=== PATIENT | female | born 1950 | race Caucasian/White ===

== ENCOUNTER 2019-09-16 12:16 | Day surgery (SDC) | payer MEDICARE, OTHER, SELFPAY ==
[2019-09-15 07:26] VITALS: BMI 26.1
[2019-09-16] VITALS (15 sets, daily range): BP systolic 105–167; BP diastolic 58–88; PULSE 58–71; RESP 10–18; TEMP 36.3–36.7; O2SAT 93–98; BMI 26.1
[2019-09-16] MEDS: LACTATED RINGERS 1,000 ML 100 ML IV ×3 (13:26→17:39)
[2019-09-16] MEDS: FAMOTIDINE 20 MG/50 ML PIGGYBACK 200 MG IV (14:12)
--- NOTE | 2019-09-16 14:22 | PM.PREOP ---
Pre-operative Note Interval Note History & Physical reviewed/Exam performed by Physician: Yes Changes to H&P: No H&P completed within 30 days and has changed as indicated here:: See outpatient note from 09/08
[2019-09-16] MEDS: CLINDAMYCIN 900 MG/50 ML PIGGYBACK 50 MG IV (14:35)
--- NOTE | 2019-09-16 14:56 | SUR.OPER ---
Lithotomy on padded OR bed, head on pillow, arms secured on padded arm boards at <90 degrees abduction. Legs secured in padded yellow fins stirrups.
[2019-09-16] MEDS: BUPIVACAINE 0.5% W/ EPI (PF) 30 ML VIAL 10 ML INJ (15:14)
[2019-09-16] MEDS: SODIUM CHLORIDE 0.9% FLUSH 30 ML IV (15:15)
--- NOTE | 2019-09-16 16:08 | PM.OP.1 ---
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 Post-op diagnosis: same Procedure & Clinicians Procedure: Anterior repair with biologic graft, posterior repair with bilateral sacrospinous ligament fixation, and perineoplasty Same procedure as scheduled: Yes Indications: Recurring cystocele and vaginal vault prolapse with a history of hysterectomy and anterior repair Surgeon: Aliya Castelan Click Yes if Unassisted: Yes Anesthesia Type: General Operative Notes Findings: Cystocele that prolapses out of the hymen, gaping introitus, vaginal vault prolapse Closure Type: primary Specimen(s): none sent Prosthetic devices, grafts, tissues, transplants, or devices: Coloplast treated dermis biologic graft Applied: catheter (Duenas ) and other (Vaginal packing) Estimated Blood Loss (mL): 100 Blood products transfused: none Procedure in detail: Patient was brought to the operating room where she was placed in yellowfin stirrups and prepped and draped in the usual sterile fashion. A 20 point check system was reviewed prior to the beginning of the case. Pulsatile stockings were in place and functional throughout the case. Warming was in place. 900 mg of clindamycin were in prior to beginning of the case. A Duenas catheter was placed. A dilute solution of 0.5% Marcaine with epinephrine was injected over this cystocele. An incision was made over the cystocele and the incision dissected laterally. A pursestring suture was used to decrease the caliber of the cystocele with 2-0 Vicryl suture. The biological graft was sutured with 3, 0 Monodec absorbable suture from the white line to the graft on both sides. Plicating sutures were made over the cystocele with 2 0 Vicryl.. A small amount of the vaginal excessive tissue was removed with scissors. The incision was closed with 2-0 Vicryl suture. Next a wedge shaped tissue was taken out of the posterior vaginal opening. The area over the rectocele was injected with a dilute solution of 1% lidocaine with epinephrine. An incision was made over the rectocele and enterocele with the scalpel. The dissection was undertaken laterally. Braided polyester nonabsorbable suture with the Capio passer was placed through the uterosacral ligament on the right side and sutured to the underside of the vaginal cuff. Same procedure was performed on the left. 0 Vicryl suture was used to plicate over the rectocele. A finger was placed in the rectum to be sure there were no sutures placed through the rectal mucosa. The uterosacral sutures were tightened down and the vaginal incision was closed with 2-0 Vicryl suture. The perineal body was built up with interrupted 0 Vicryl sutures. The skin was closed with the 2-0 Vicryl suture. Vaginal packing was placed in the vagina and the Duenas left in place. Counts of instruments and sponges were correct. The patient went to recovery room in good condition. Complications: none Post-operative Condition: stable Disposition: observation Plan for aftercare: Remove Duenas and vaginal packing in a.m. home after bladder trial
[2019-09-16] MEDS: HYDROMORPHONE 2 MG INJ IV ×2 (16:26→16:32)
[2019-09-16] MEDS: MAG HYDROX/ALUM/SIMETH 30 ML UDC PO (17:00)
[2019-09-16] MEDS: KETOROLAC 30 MG/ML VIAL IV (17:40)
[2019-09-16] MEDS: DOCUSATE 250 MG CAPSULE PO (20:57)
[2019-09-17] VITALS: O2SAT 94
[2019-09-17] MEDS: LACTATED RINGERS 1,000 ML 100 ML IV (03:50)
[2019-09-17] MEDS: KETOROLAC 30 MG/ML VIAL IV (03:50)
[2019-09-17 04:06] VITALS: BP 134/72; PULSE 62; RESP 18; TEMP 36.6; O2SAT 95
[2019-09-17 05:43] LABS: Add Manual Diff / Slide Review NO; Basophils Absolute Auto 0 /uL (0-100); Basophils Percent Auto 0.2 % (0-2); Eosinophils Absolute Auto 0 /uL (0-450); Hematocrit 41.1 % (36-46); Lymphocytes Absolute Auto 600 /uL (1100-4500); Mean Corpuscular HGB Conc 34.2 % (30-36); Mean Corpuscular Hemoglobin 29.9 PG (26-34); Mean Corpuscular Volume 87.3 fL (80-100); Monocytes Absolute Auto 600 /uL (0-900); Monocytes Percent Auto 5.2 % (3-14); Neutrophils Absolute Auto 11000 /uL (1500-7000); Neutrophils Percent Auto 89.6 % (50-75); Platelet Count 161 X10^3/uL (150-400); Red Blood Cell Count 4.71 X10^6/uL (4.0-5.2); Red Cell Distribution Width 13.1 % (11.6-14.8); White Blood Cell Count 12.3 X10^3/uL (4.5-11.0)
[2019-09-17 07:55] VITALS: BP 124/73; PULSE 60; RESP 16; TEMP 36.4; O2SAT 96
[2019-09-17 08:42] VITALS: O2SAT 96
[2019-09-17] MEDS: DOCUSATE 250 MG CAPSULE PO (09:18)
--- NOTE | 2019-09-17 09:46 | PM.DS.1 ---
History of Present Illness History of Present Illness Date Patient Seen: 09/17/19 Time Patient Seen: 09:46 Chief complaint: OPB [id number] Narrative: Patient had a symptomatic cystocele with vaginal vault prolapse. Patient underwent a anterior repair with biological graft, bilateral sacrospinous ligament fixation, perineoplasty. She did well postoperatively. She had a 11 cc postvoid residual. Discharge Providers Provider Discharge Date: 09/17/19 Primary care physician: Sherin Cazares MD Discharge provider: Aliya Castelan MD Summary Hospital Course Discharge Diagnosis: Cystocele with vaginal vault prolapse Hospital Course: The patient did well postoperatively and had passed her postvoid residual and was discharged home. Status at Discharge Cognitive/behavioral status at discharge: oriented Functional status at discharge: independent ambulation Overall status at discharge: patient is progressing back to baseline Time Spent with Patient Time spent: Less than 30 minutes Exam Vital Signs (past 8 hours): - 09/17/19 04:06 09/17/19 07:55 09/17/19 08:42 Temperature 97.9 F 97.6 F Pulse Rate 62 60 Respiratory Rate 18 16 Blood Pressure 134/72 124/73 Pulse Oximetry 95 96 96 Oxygen Delivery Method Room Air Oxygen Flow Rate 0 Narrative Exam Narrative: Patient's abdomen is soft, nontender. Vaginal packing was removed without problem with minimal bleeding. Extremities without edema and nontender. Objective Labs Result Diagrams: 09/17/19 05:23 Labs: Laboratory Results - last 24 hr 09/17/19 05:23 WBC 12.3 H RBC 4.71 Hgb 14.0 Hct 41.1 MCV 87.3 MCH 29.9 MCHC 34.2 RDW 13.1 Plt Count 161 Neut % (Auto) 89.6 H Lymph % (Auto) 5.0 L Montour % (Auto) 5.2 Eos % (Auto) 0.0 L Baso % (Auto) 0.2 Neut # (Auto) 28052 H Lymph # (Auto) 600 L Montour # (Auto) 600 Eos # (Auto) 0 Baso # (Auto) 0 Discharge Plan Discharge Plan Patient Disposition: Home Discharge Med Rec/Prescriptions Prescriptions: New hydrocodone-acetaminophen 5-325 mg Tablet 2 tab PO Q4HR PRN (Reason: Pain, Severe (7-10)) Qty: 30 RF: 0 docusate sodium 250 mg Capsule 250 mg PO BID Qty: 30 RF: 0 Continued hydroxychloroquine 200 mg tablet 200 mg PO DAILY RF: 0 nifedipine 30 mg tablet extended release 30 mg PO DAILY RF: 0 aspirin [Adult Aspirin Regimen] 81 mg tablet,delayed release (DR/EC) 81 mg PO DAILY RF: 0 sertraline [Zoloft] 50 mg tablet 50 mg PO DAILY RF: 0 gabapentin 300 mg capsule 600 mg PO DAILY RF: 0 mycophenolate sodium 360 mg tablet,delayed release (DR/EC) 720 mg PO BID RF: 0 Ca carbonate-mag oxide-vit C 400 mg calcium -117 mg-167 mg tablet 1 tab PO DIRECTED RF: 0 lactobacillus combination no.8 [Adult Probiotic] 3 billion cell capsule 3,000 mmu cells PO DAILY RF: 0 cholecalciferol (vitamin D3) 2,000 unit capsule 2,000 unit PO DAILY RF: 0 vitamin B complex [B Complex-Vitamin B12] tablet 1 tab PO DAILY RF: 0 omeprazole 20 mg capsule,delayed release(DR/EC) 20 mg PO DAILY RF: 0 Follow up/Referrals: Aliya Castelan MD [Physician] - 2 Weeks Sherin Cazares MD [Primary Care Provider] - Discharge Orders: Discharge (Order); Ordered 09/17/19 Ordered By: Aliya Castelan Provider Discharge Instructions Diet: Regular Activity: do not lift over 20 pounds for 6 weeks, nothing in vagina for 6 weeks Skin/Wound/Dressing Care Report to your healthcare provider any signs of infection, such as:: chills, fever and increased pain Visit Report/Discharge Packet Stand Alone Forms: Surgery Discharge Discharge Data Primary Care Provider: Sherin Cazares Attending Provider: Aliya Castelan Quality VTE Deep Vein Thrombosis/Pulmonary Embolism Present on Admission: No
--- NOTE | 2019-09-17 11:34 | PC.NURSE ---
Pt is dressed and ready for discharge home with spouse. Went over d/c instructions with Pt and Spouse-discussed d/c meds, time of last dose, reviewed s/s of infection, watching for increased drainage on pads, incontinence, urine retention, no lifting over 20 pounds for six weeks or anything in the vagina for six weeks, and follow up appointment. Pt encouraged to drink plenty of fluids and take a stool softener to prevent constipation or dehydration. Pt denies further questions and was taken out to POV via w/c by [employer]TH[employer]SM[employer] with Spouse and all belongings.
== END 2019-09-17 11:40 | disposition home or self-care (01) ==
LOC: OR 12:19 → AC 12:19
PROVIDERS: PCP Internal Medicine; Visit Provider Specialist
PROC: (CPT 57282; principal; 2019-09-16 13:30)
DX: N81.2 Incomplete uterovaginal prolapse (principal)
CPT/HCPCS: 57282; 57260; 57267; 36415; 85025; C1781; J1100; J1170; J1885; J2405; J2704; J3010

== ENCOUNTER 2019-09-22 06:21 | Day surgery (SDC) | payer MEDICARE, OTHER, SELFPAY ==
[2019-09-16 17:30] VITALS: BMI 26.1
--- NOTE | 2019-09-21 16:38 | PM.PREOP ---
Pre-operative Note Interval Note History & Physical reviewed/Exam performed by Physician: Yes Changes to H&P: Yes H&P completed within 30 days and has changed as indicated here:: Patient successfully had bladder epair surgery last week and is stable to proceed with surgery today.
[2019-09-22] MEDS: PROPARACAINE 0.5% OPHTH SOL 2 DROPS EYE-OP (07:04)
[2019-09-22] MEDS: CATARACT EYE COMPOUND (10 DROPS/SYRINGE) 3 DROPS EYE-OP (07:11)
[2019-09-22 07:13] VITALS: BMI 26.2
[2019-09-22 07:19] VITALS: BP 137/76; PULSE 68; RESP 16; TEMP 36.9; O2SAT 95
--- NOTE | 2019-09-22 07:21 | PM.OP.1 ---
Operative Date/Time/Diagnoses Date of procedure: 09/22/19 Time of procedure: 07:45 Procedure & Clinicians Procedure: Preoperative diagnoses: 1. Left nuclear sclerotic and cortical cataract. 2. Recent repair bladder prolapse. 3. Scleroderma. Postoperative diagnoses: 1. Cataract removed by phacoemulsification with placement of posterior chamber intraocular lens. Procedure: Phacoemulsification with posterior chamber intraocular lens implant Surgeon: Imelda Weinberg MD Complications: None Specimen: None Implant: ZCBOO+13.5 Blood loss: None Anesthesia: Retrobulbar with monitored standby Description of procedure: Patient presents with a complaint of decreased vision due to cataract which is affecting activities of daily living. The patient wants surgery to improve vision. The patient was taken to the operating room and given IV sedation. A retrobulbar block consisting of 6 cc of 2% xylocaine without epinephrine mixed half and half with 0.5% Marcaine with 1 cc of hyaluronidase added is placed between the medial and lateral 1/3 of the inferior orbital rim. The eye is manually massaged for 30 sec, prepped using Betadine solution, and draped in the usual sterile fashion. Temporal approach was made, a 1 mm side-port incision was made 90? from the proposed clear corneal incision position. Phenylephrine 1.5% mixed with 1% xylocaine 0.2 cc was placed into the anterior chamber. Viscoat followed by Shaq was then placed. A 2.6 mm clear incision with a 2.6 mm blade was placed. A 360 degree capsulorrhexis style capsulotomy was then performed with a cystitome needle on a Healon. Hydrodelineation and hydrodissection were performed. The phacoemulsification unit is introduced, and sculpting notice used to groove the central lens. It is then removed in chopping mode. Epi nucleus is removed with epinuclear mode and irrigation aspiration was used to remove the peripheral cortex. The posterior capsule is polished. The intraocular lens is selected, inspected, power confirmed, and placed in the posterior chamber. The wound was stromally hydrated and tested for leaks, there was none and it was left sutureless. Vigamox 0.1 cc was placed into the anterior chamber. Kenalog 0.2 cc was placed in the superior subconjunctival space. A drop of antibiotic and was placed and the eye was patched and shielded. The patient was stable and returned to the recovery room in excellent condition. Dictated by: Imelda Weinberg MD Copy to: [facility]
[2019-09-22] MEDS: CHONDROIDTIN/SOD HYALURONATE 1.05 ML SYRINGE INTRAOCULA (08:09)
[2019-09-22] MEDS: BALANCED SALT IRRIG SOLN NO.2 500 ML, EPINEPHrine 1 MG IRR (08:09)
[2019-09-22] MEDS: HYALURONATE SODIUM 10 MG/ML SYRINGE INJ (08:09)
[2019-09-22] MEDS: PHENYLEPHRINE/LIDOCAINE VIAL (OR) 0.2 ML EYE-OP (08:10)
[2019-09-22] MEDS: TRIAMCINOLONE 50 MG/5 ML VIAL INJ (08:11)
[2019-09-22] MEDS: ERYTHROMYCIN OPHTH 1 GM OINT 1 APPLIC EYE-LEFT (08:11)
[2019-09-22] MEDS: MOXIFLOXACIN INJ 5 MG/ML VIAL EYE-OP (08:11)
[2019-09-22] MEDS: LIDOCAINE 2% 4 ML, BUPIVACAINE 0.5% (PF) 4 ML, HYALURONIDASE 150 UNIT INJ (08:12)
[2019-09-22 08:30] VITALS: BP 137/76; PULSE 68; RESP 16; TEMP 36.9; O2SAT 95
== END 2019-09-22 08:53 | disposition home or self-care (01) ==
LOC: OR 06:23
PROVIDERS: PCP Internal Medicine; Visit Provider Ophthalmology
PROC: (CPT 66984; principal; 2019-09-22 07:45)
DX: H25.812 Combined forms of age-related cataract, left eye (principal); M35.00 Sjogren syndrome, unspecified; M34.9 Systemic sclerosis, unspecified; F32.9 Major depressive disorder, single episode, unspecified; F41.9 Anxiety disorder, unspecified
CPT/HCPCS: 66984; J0171; J2704; J3301; J3470

== ENCOUNTER 2019-09-29 07:25 | Day surgery (SDC) | payer MEDICARE, OTHER, SELFPAY ==
[2019-09-16 17:30] VITALS: BMI 26.1
--- NOTE | 2019-09-28 18:40 | PM.PREOP ---
Pre-operative Note Interval Note History & Physical reviewed/Exam performed by Physician: Yes Changes to H&P: No
--- NOTE | 2019-09-29 07:52 | P.OP_ITS ---
Operative Date/Time/Diagnoses Date of procedure: 09/29/19 Time of procedure: 08:45 Procedure & Clinicians Procedure: Preoperative diagnoses: 1. Right nuclear sclerotic and cortical cataract. 2. Scleroderma. 3. high myopia 4. Recent repair of bladder prolapse. Postoperative diagnoses: 1. Cataract removed by phacoemulsification with placement of posterior chamber intraocular lens. Procedure: Phacoemulsification with posterior chamber intraocular lens implant Surgeon: Imelda Weinberg MD Complications: None Specimen: None Implant: ZCBOO+14.5 Blood loss: None Anesthesia: Retrobulbar with monitored standby Description of procedure: Patient presents with a complaint of decreased vision due to cataract which is affecting activities of daily living. She also has imbalance following her recent left cataract surgery and desires a distance implant to improve vision and ability to function. The patient was taken to the operating room and given IV sedation. A retrobulbar block consisting of 6 cc of 2% xylocaine without epinephrine mixed half and half with 0.5% Marcaine with 1 cc of hyaluronidase added is placed between the medial and lateral 1/3 of the inferior orbital rim. The eye is manually massaged for 30 sec, prepped using Betadine solution, and draped in the usual sterile fashion. Temporal approach was made, a 1 mm side-port incision was made 90? from the proposed clear corneal incision position. Phenylephrine 1.5% mixed with 1% xylocaine 0.2 cc was placed into the anterior chamber. Viscoat followed by Valentinaon was then placed. A 2.6 mm clear incision with a 2.6 mm blade was placed. A 360 degree capsulorrhexis style capsulotomy was then performed with a cystitome needle on a Healon. Hydrodelineation and hydrodissection were performed. The phacoemulsification unit is introduced, and sculpting notice used to groove the central lens. It is then removed in chopping mode. Epi nucleus is removed with epinuclear mode and irrigation aspiration was used to remove the peripheral cortex. The posterior capsule is polished. The intraocular lens is selected, inspected, power confirmed, and placed in the posterior chamber. The wound was stromally hydrated and tested for leaks, there was none and it was left sutureless. Vigamox 0.1 cc was placed into the anterior chamber. Kenalog 0.2 cc was placed in the superior subconjunctival space. A drop of antibiotic and was placed and the eye was patched and shielded. The patient was stable and returned to the recovery room in excellent condition. Dictated by: Imelda Weinberg MD Copy to: [facility]
[2019-09-29 07:54] VITALS: BP 123/68; PULSE 70; RESP 15; TEMP 36.2; O2SAT 96
[2019-09-29] MEDS: PROPARACAINE 0.5% OPHTH SOL 2 DROPS EYE-OP (08:05)
[2019-09-29] MEDS: CATARACT EYE COMPOUND (10 DROPS/SYRINGE) 3 DROPS EYE-OP (08:06)
[2019-09-29] MEDS: CHONDROIDTIN/SOD HYALURONATE 1.05 ML SYRINGE INTRAOCULA (09:06)
[2019-09-29] MEDS: ERYTHROMYCIN OPHTH 1 GM OINT 1 APPLIC EYE-RIGHT (09:07)
[2019-09-29] MEDS: HYALURONATE SODIUM 10 MG/ML SYRINGE INJ (09:07)
[2019-09-29] MEDS: TRIAMCINOLONE 50 MG/5 ML VIAL INJ (09:08)
[2019-09-29] MEDS: PHENYLEPHRINE/LIDOCAINE VIAL (OR) 0.2 ML EYE-OP (09:08)
[2019-09-29] MEDS: MOXIFLOXACIN INJ 5 MG/ML VIAL EYE-OP (09:08)
[2019-09-29] MEDS: BALANCED SALT IRRIG SOLN NO.2 500 ML, EPINEPHrine 1 MG IRR (09:09)
[2019-09-29] MEDS: LIDOCAINE 2% 4 ML, BUPIVACAINE 0.5% (PF) 4 ML, HYALURONIDASE 150 UNIT INJ (09:11)
[2019-09-29 09:36] VITALS: BP 126/76; PULSE 62; RESP 15; TEMP 36.3; O2SAT 97
== END 2019-09-29 09:50 | disposition home or self-care (01) ==
LOC: OR 07:26
PROVIDERS: PCP Internal Medicine; Visit Provider Ophthalmology
PROC: (CPT 66984; principal; 2019-09-29 08:45)
DX: H25.11 Age-related nuclear cataract, right eye (principal); M35.00 Sjogren syndrome, unspecified; F41.9 Anxiety disorder, unspecified; H44.20 Degenerative myopia, unspecified eye; M34.9 Systemic sclerosis, unspecified
CPT/HCPCS: 66984; J0171; J3301; J3470

== ENCOUNTER → 2022-01-23 14:45 | Outpatient (CLI) | payer MEDICARE, OTHER, SELFPAY ==
[2019-09-16 17:30] VITALS: BMI 26.1
--- NOTE | 2022-01-23 | DI.MG.S_ITS ---
BILATERAL DIGITAL SCREENING MAMMOGRAM 3D/2D WITH CAD: 01/23/2022 CLINICAL: Routine screening. Family history of breast cancer. Comparison is made to exams dated: 09/21/2018 mammogram, 08/11/2017 mammogram, and 07/04/2016 mammogram - out side. The tissue of both breasts is heterogeneously dense. This may lower the sensitivity of mammography. Current study was also evaluated with a Computer Aided Detection (CAD) system. No significant masses, calcifications, or other findings are seen in either breast. There has been no significant interval change. IMPRESSION: NEGATIVE There is no mammographic evidence of malignancy. A 1 year screening mammogram is recommended. This exam was interpreted at Station ID: [id number]. NOTE: For mammograms, a report in lay terms will be sent to the patient. Approximately 15% of breast malignancies will not be visualized mammographically. In the management of a palpable breast mass, a negative mammogram must not discourage biopsy of a clinically suspicious lesion. Electronically Signed By: Eber alejandra/baylee:01/23/2022 15:21:52 letter sent: Normal Exam ACR BI-RADS Category 1: Negative [id number]
== END ==
PROVIDERS: PCP Physician Assistant; Referring Provider Physician Assistant; Visit Provider Physician Assistant
DX: Z12.31 Encounter for screening mammogram for malignant neoplasm of breast (principal); Z80.3 Family history of malignant neoplasm of breast
CPT/HCPCS: 77063; 77067

== ENCOUNTER → 2022-02-18 12:46 | Outpatient (CLI) | payer MEDICARE, OTHER, SELFPAY ==
[2019-09-16 17:30] VITALS: BMI 26.1
--- NOTE | 2022-02-18 12:49 | DI.RAD.S_ITS ---
PROCEDURE: XR DEXA AXIAL SKELETON INDICATIONS: DEXA MENOPAUSAL SYPTOMS COMPARISON: None. FINDINGS: This blank DEXA report has been sent in error by the PACS system. The correct and complete report will be forthcoming in 1-2 days. Thank you for your patience and understanding. Dictated by: Sivakumar Champion M.D. on 02/18/2022 at 13:59 Approved by: Sivakumar Champion M.D. on 02/18/2022 at 13:59
== END ==
PROVIDERS: PCP Physician Assistant; Referring Provider Physician Assistant; Visit Provider Physician Assistant
DX: Z78.0 Asymptomatic menopausal state (principal); Z13.820 Encounter for screening for osteoporosis; M85.89 Other specified disorders of bone density and structure, multiple sites; Z90.710 Acquired absence of both cervix and uterus
CPT/HCPCS: 77080

== ENCOUNTER 2022-09-05 10:38 | Emergency (ER) | payer MEDICARE, OTHER, SELFPAY ==
[2019-09-16 17:30] VITALS: BMI 26.1
[2022-09-05 10:45] VITALS: BP 127/82; PULSE 81; RESP 18; TEMP 37.6; O2SAT 95; BMI 26.6
--- NOTE | 2022-09-05 11:10 | ED.GENADULT ---
HPI - General Adult General Chief complaint: Upper Respiratory Symptoms Stated complaint: tested positive for covid this morning Time Seen by Provider: 09/05/22 10:52 Source: patient Mode of arrival: Ambulatory History of Present Illness HPI narrative: 72-year-old female. History of scleroderma. Is vaccinated against COVID. Approximately 48 hours ago started to have symptoms consistent with COVID. She tested herself last evening and was negative. Woke up this morning and tested herself again and she was positive. No chest pain or shortness of breath. No fevers. Related Data Home Medications Medication Instructions Recorded Confirmed aspirin 81 mg tablet,delayed 81 mg PO DAILY 09/11/18 06/27/22 release (Adult Aspirin Regimen) cholecalciferol (vitamin D3) 50 2,000 unit PO DAILY 09/11/18 06/27/22 mcg (2,000 unit) capsule hydroxychloroquine 200 mg tablet 200 mg PO DAILY 09/11/18 06/27/22 lactobacillus combination no.8 3 3,000 mmu cells PO DAILY 09/11/18 06/27/22 billion cell capsule (Adult Probiotic) nifedipine 30 mg tablet,extended 30 mg PO DAILY 09/11/18 06/27/22 release vitamin B complex (B 1 tab PO DAILY 09/11/18 06/08/21 Complex-Vitamin B12 tablet) azelastine 205.5 mcg (0.15 %) 1 spray intranasal BEDTIME PRN 06/27/22 06/27/22 nasal spray ifjqoiy-qangqpacy-mrdy tablet 1 tab PO DAILY 06/27/22 06/27/22 colestipol 1 gram tablet 1 g PO DAILY 06/27/22 06/27/22 gabapentin 300 mg capsule 300 mg PO BID 06/27/22 06/27/22 mycophenolate sodium 360 mg 360 mg PO BID 06/27/22 06/27/22 tablet,delayed release omeprazole 20 mg capsule,delayed 20 mg PO BID 06/27/22 06/27/22 release Previous Rx's Medication Instructions Recorded sertraline 50 mg tablet (Zoloft) 50 mg PO DAILY #90 tabs 06/27/22 nirmatrelvir 300 mg (150 mg See Rx Instructions PO .COMPLEX 09/05/22 x2)-ritonavir 100 mg tablet,dose #30 ea pack(EUA) (Paxlovid) Allergies Allergy/AdvReac Type Severity Reaction Status Date / Time Penicillins Allergy Unknown Welts Verified 10/22/19 08:18 Sulfa (Sulfonamide Allergy Unknown Unknown Verified 10/22/19 08:18 Antibiotics) Review of Systems Constitutional Constitutional: Reports system reviewed and no additional complaints, except as documented Cardiovascular Cardiovascular: Reports system reviewed and no additional complaints, except as documented Respiratory Respiratory: Reports system reviewed and no additional complaints, except as documented Integumentary/Breasts Skin/Breast: Reports system reviewed and no additional complaints, except as documented Neurologic Neurologic: Reports system reviewed and no additional complaints, except as documented Hematologic/Lymphatic On Anticoagulants: No Patient History Medical History Cataracts, bilateral (~2018) Chicken pox Colon polyps Depression GERD (gastroesophageal reflux disease) Mumps Osteopenia (~2011) Peripheral neuropathy Prolapsed bladder Pure hypercholesterolemia Raynauds syndrome Scleroderma (~2009) Surgical History Anesthesia History of cataract removal with insertion of prosthetic lens (~2018) History of hysterectomy for benign disease (~1993) History of tonsillectomy (~1955) Skin cancer Vaginal prolapse (~2018) Family History Father Prostate cancer Diabetes mellitus History of heart disease Hypertension Hyperlipidemia Congestive heart failure Mother Cancer Stroke Brother Atrial fibrillation Skin cancer Hyperlipidemia Brother Atrial fibrillation Hyperlipidemia Sister Skin cancer Grandmother Colon cancer Grandfather History of heart attack Grandmother Tuberculosis of spine Social History household members: spouse Smoking Status: Former smoker alcohol intake: current Smoking Status: Former smoker alcohol intake frequency: a few times a month Substance Use Type: does not use Exam Initial Vital Signs Initial Vital Signs: Vital Signs Temperature 99.6 F 09/05/22 10:45 Pulse Rate 81 09/05/22 10:45 Respiratory Rate 18 09/05/22 10:45 Blood Pressure 127/82 09/05/22 10:45 Pulse Oximetry 95 09/05/22 10:45 Oxygen Delivery Method 09/05/22 10:45 Const General: cooperative, comfortable and No ill appearing HENMT Head: normal to inspection and normocephalic Resp Effort & Inspection: normal respiratory effort Auscultation: clear to auscultation bilaterally Cardio Rate: regular rate Rhythm: regular rhythm Skin General: no rashes or lesions noted Neuro General: patient alert, patient awake, patient oriented x3 and moves all extremities Extrem General: normal to inspection and capillary refill normal Course Orders Ordered: ED Orders 09/05/22 10:45 BMP [Basic Metabolic Panel] Stat Vital Signs Vital signs: Vital Signs - 8 hr 09/05/22 10:45 Temperature 99.6 F Pulse Rate 81 Respiratory Rate 18 Blood Pressure 127/82 Pulse Oximetry 95 Oxygen Delivery Method Room Air Medical Decision Making Lab Data Lab results reviewed: Yes I reviewed the patient's lab results. Result diagrams: 09/05/22 10:45 Labs: Lab Results 09/05/22 Range/Units 10:45 Sodium 133 L (137-145) mmol/L Potassium 3.9 (3.4-5.1) mmol/L Chloride 98 (98-107) mmol/L Carbon Dioxide 28 (22-32) mmol/L BUN 8 (7-17) mg/dL Creatinine 0.62 (0.52-1.04) mg/dL Estimated GFR > 60 (>60) mL/min BUN/Creatinine Ratio 12.9 (6-22) Glucose 105 (80-110) mg/dL Calcium 9.1 (8.4-10.2) mg/dL MDM Narrative Medical decision making narrative: Patient is a candidate for Paxlovid. We did discuss the risks and benefits of it. We did discuss the potential for rebound infection. No indication for radiologic studies. Not hypoxic. Not febrile. No indication for antibiotics. Patient was given return precautions and follow-up instructions. She expressed understanding and agreement. Discharge Plan Departure Patient Disposition: Home Clinical Impression: COVID-19 Instructions: COVID-19 Activity Restrictions/Additional Instructions: A prescription for paxlovid was sent to [facility] here in [place]. There open until 3:00 this afternoon today. Recommend that you take it as directed. Return to the emergency department for any new or worsening symptoms. Prescriptions: New Paxlovid (EUA) 300 mg (150 mg x 2)-100 mg tablets,dose pack See Rx Instructions .ROUTE .COMPLEX Qty: 30 0RF Rx Instructions: take TWO 150 mg tablets of nirmatrelvir with ONE 100 mg tablet of ritonavir twice daily for 5 days No Action hydroxychloroquine 200 mg tablet 200 mg PO DAILY nifedipine 30 mg tablet extended release 30 mg PO DAILY aspirin [Adult Aspirin Regimen] 81 mg tablet,delayed release (DR/EC) 81 mg PO DAILY lactobacillus combination no.8 [Adult Probiotic] 3 billion cell capsule 3,000 mmu cells PO DAILY cholecalciferol (vitamin D3) 2,000 unit capsule 2,000 unit PO DAILY vitamin B complex [B Complex-Vitamin B12] tablet 1 tab PO DAILY gabapentin 300 mg capsule 300 mg PO BID mycophenolate sodium 360 mg tablet,delayed release (DR/EC) 360 mg PO BID omeprazole 20 mg capsule,delayed release(DR/EC) 20 mg PO BID sertraline [Zoloft] 50 mg tablet 50 mg PO DAILY Qty: 90 3RF hrmmyye-yqxpjudht-rqsf Tablet 1 tab PO DAILY colestipol 1 gram tablet 1 g PO DAILY azelastine 205.5 mcg (0.15 %) spray,non-aerosol 1 spray intranasal BEDTIME PRN Rx Instructions: administer into each nostril Referrals: Sherif Pitts DO [Primary Care Provider] -
[2022-09-05 11:35] LABS: BUN Creatinine Ratio 12.9 (6-22); Blood Urea Nitrogen 8 mg/dL (7-17); Calcium 9.1 mg/dL (8.4-10.2); Carbon Dioxide 28 mmol/L (22-32); Chloride 98 mmol/L (98-107); Estimated Glomerular Filt Rate > 60 mL/min (>60); Glucose 105 mg/dL (80-110); HEMOLYSIS < 15 (0-50); Potassium 3.9 mmol/L (3.4-5.1); Sodium 133 mmol/L (137-145)
[2022-09-05 12:25] VITALS: BP 140/69; PULSE 85; RESP 18; O2SAT 95
== END 2022-09-05 12:26 | disposition home or self-care (01) ==
PROVIDERS: Emergency Provider Emergency Medicine; PCP Family Medicine
DX: U07.1 COVID-19 (principal)
CPT/HCPCS: 36415; 80048; 99282; 99283

== ENCOUNTER → 2023-03-31 12:11 | Outpatient (CLI) | payer MEDICARE, OTHER, SELFPAY ==
[2019-09-16 17:30] VITALS: BMI 26.1
--- NOTE | 2023-03-31 | DI.US.S_ITS ---
PROCEDURE: US PERIPH VENOUS LOW EXTREM LT INDICATIONS: SWELLING. RECENT TRAVEL. TECHNIQUE: Real-time imaging, as well as color and pulse Doppler interrogation, were performed of the lower extremity deep veins from the inguinal ligament to the popliteal fossa. COMPARISON: None. FINDINGS: The common femoral, femoral and popliteal veins are normally compressible, and free of intraluminal thrombus. Color and pulse Doppler demonstrate normal phasic intraluminal flow. There is normal augmentation response to distal compression maneuver. IMPRESSION: No deep venous thrombosis. Dictated by: Monae Doshi M.D. on 03/31/2023 at 13:19 Approved by: Monae Doshi M.D. on 03/31/2023 at 13:19
== END ==
PROVIDERS: PCP Family Medicine; Referring Provider Emergency Medicine; Visit Provider Emergency Medicine
DX: M79.605 Pain in left leg (principal); R60.0 Localized edema
CPT/HCPCS: 93971

== ENCOUNTER → 2023-04-09 15:09 | Outpatient (CLI) | payer MEDICARE, OTHER, SELFPAY ==
[2019-09-16 17:30] VITALS: BMI 26.1
== END ==
PROVIDERS: PCP Family Medicine; Referring Provider Family Medicine; Visit Provider Family Medicine
DX: R00.0 Tachycardia, unspecified (principal); I48.0 Paroxysmal atrial fibrillation
CPT/HCPCS: 93242

== ENCOUNTER 2023-08-27 18:01 | Emergency (ER) | payer MEDICARE, OTHER, SELFPAY ==
[2019-09-16 17:30] VITALS: BMI 26.1
[2023-08-27] VITALS (7 sets, daily range): BP systolic 133–158; BP diastolic 63–73; PULSE 64–88; RESP 18–21; TEMP 36.6–36.9; O2SAT 96–97; BMI 25.7
--- NOTE | 2023-08-27 19:14 | DI.RAD.S_ITS ---
PROCEDURE: XR CHEST 1V INDICATIONS: Palpitations TECHNIQUE: One view of the chest was acquired. COMPARISON: None. FINDINGS: Surgical changes and devices: None. Lungs and pleura: Lungs are clear. No pleural effusions or pneumothorax. Mediastinum: Mediastinal contours appear normal. Heart size is normal. Bones and chest wall: No suspicious bony lesions. Overlying soft tissues appear unremarkable. IMPRESSION: Portable chest within normal limits for age. Dictated by: Rod Tylre M.D. on 08/27/2023 at 20:15 Approved by: Rod Tyler M.D. on 08/27/2023 at 20:16
[2023-08-27 19:58] LABS: Alanine Aminotransferase 6 IU/L (<35); Albumin 4.1 g/dL (3.5-5.0); Albumin Globulin Ratio 1.3 (1.0-2.8); Alkaline Phosphatase 61 U/L (38-126); Aspartate Aminotransferase 34 IU/L (14-36); BUN Creatinine Ratio 31.7 (6-22); Bilirubin Total 0.7 mg/dL (0.2-1.3); Blood Urea Nitrogen 19 mg/dL (7-17); Calcium 9.4 mg/dL (8.4-10.2); Carbon Dioxide 29 mmol/L (22-32); Chloride 100 mmol/L (98-107); Estimated Glomerular Filt Rate > 60 mL/min (>60); Globulin 3.2 g/dL (1.7-4.1); Glucose 99 mg/dL (80-110); HEMOLYSIS 42 (0-50); Lipase 124 U/L (23-300); Potassium 3.9 mmol/L (3.4-5.1); Sodium 137 mmol/L (137-145); Total Protein 7.3 g/dL (6.3-8.2)
[2023-08-27 20:06] LABS: Creatine Kinase 36 U/L (30-135)
[2023-08-27 20:18] LABS: Troponin I < 0.012 ng/mL (0.01-0.034)
[2023-08-27 20:26] LABS: Add Manual Diff / Slide Review NO; Basophils Absolute Auto 100 /uL (0-100); Basophils Percent Auto 0.6 % (0-2); Eosinophils Absolute Auto 500 /uL (0-450); Eosinophils Percent Auto 5.7 % (2-4); Hematocrit 41.6 % (36-46); Hemoglobin 14.3 g/dL (12.0-16.0); Lymphocytes Absolute Auto 2900 /uL (1100-4500); Lymphocytes Percent Auto 33.3 % (25-40); Mean Corpuscular HGB Conc 34.3 % (30-36); Mean Corpuscular Hemoglobin 29.5 PG (26-34); Monocytes Absolute Auto 600 /uL (0-900); Monocytes Percent Auto 6.8 % (3-14); Neutrophils Absolute Auto 4600 /uL (1500-7000); Neutrophils Percent Auto 53.6 % (50-75); Platelet Count 265 X10^3/uL (150-400); Red Blood Cell Count 4.84 X10^6/uL (4.0-5.2); Red Cell Distribution Width 13.7 % (11.6-14.8); White Blood Cell Count 8.6 X10^3/uL (4.5-11.0)
--- NOTE | 2023-08-27 21:04 | ED.ARRPALP ---
HPI - Arrhythmia/Palpitations General Chief Complaint: Arrhythmia/Palpitations Stated Complaint: rapid heartrate Time Seen by Provider: 08/27/23 19:13 Source: patient, family, RN notes reviewed and old records reviewed Mode of arrival: Ambulatory Limitations: no limitations History of Present Illness HPI narrative: 73-year-old female with history of SVT, scleroderma, Raynaud's rheumatoid arthritis, hypertension who presents with complaint of elevated heart rate on and off between 430 and 530 this evening. Patient has watch that she uses to monitor and was in the 170 range intermittently over that period of time. Upon arrival here patient has not had any tachycardia or episodes of SVT. Patient states she is had these episodes before but usually very briefly for a minute or 2 and then resolve. They had not resolved after about an hour so she was recommended to come be evaluated. She denies any other symptoms. No lightheadedness or passing out, no chest pain, no shortness of breath, no nausea or vomiting, no recent diarrhea constipation, no urinary symptoms, no new swelling in extremities. Patient was seen by Dr. Toscano in [place] with Cardiology. Was diagnosed with SVT and started on metoprolol daily. She was taking 25 mg daily was decreased to 12.5 mg daily. She typically takes it in the evening around 9:00 p.m. she has not had her evening dose today. She notes she is scheduled for an stress echo on 09/15/2023. Patient states she has not had any ablation or other cardiac interventions. No tobacco, drinks 1 glass daily of alcohol, had 1.5 glasses last night, does have an edible each night for the past several months to help with sleep. No other recreational drugs. Primary care is Dr. Pitts. Her employment specialist/program manager is Dr. Toscano in [place]. Home medications include Myfortic, omeprazole, hydrochloroquine, sertraline, nifedipine, gabapentin, metoprolol, aspirin 81 mg daily. Prior surgeries include hysterectomy, cholecystectomy, tonsillectomy, bladder prolapse surgery x2. Related Data Home Medications Medication Instructions Recorded Confirmed hydroxychloroquine 200 mg tablet 200 mg PO DAILY 09/11/18 08/08/23 lactobacillus combination no.8 3 3,000 mmu cells PO DAILY 09/11/18 08/08/23 billion cell capsule (Adult Probiotic) nifedipine 30 mg tablet,extended 30 mg PO DAILY 09/11/18 08/08/23 release [id number] tablet 1 tab PO DAILY 06/27/22 08/08/23 gabapentin 300 mg capsule 300 mg PO BID 06/27/22 08/08/23 mycophenolate sodium 360 mg 360 mg PO BID 06/27/22 08/08/23 tablet,delayed release omeprazole 20 mg capsule,delayed 20 mg PO BID 06/27/22 08/08/23 release metoprolol succinate 25 mg 12.5 mg PO DAILY 08/08/23 tablet,extended release 24 hr Previous Rx's Medication Instructions Recorded sertraline 50 mg tablet 50 mg PO DAILY #90 tabs 06/27/23 Allergies Allergy/AdvReac Type Severity Reaction Status Date / Time Penicillins Allergy Unknown Welts Verified 08/08/23 10:04 Sulfa (Sulfonamide Allergy Unknown Unknown Verified 08/08/23 10:04 Antibiotics) Review of Systems Review of Systems ROS Unobtainable: All systems reviewed & are unremarkable except as noted in HPI and below Patient History Medical History Chronic diarrhea Anxiety about health Pure hypercholesterolemia Cataracts, bilateral (~2018) Prolapsed bladder GERD (gastroesophageal reflux disease) Colon polyps Depression Peripheral neuropathy Osteopenia (~2011) Mumps Chicken pox Raynauds syndrome Scleroderma (~2009) Surgical History Anesthesia History of cataract removal with insertion of prosthetic lens (~2018) Vaginal prolapse (~2018) History of tonsillectomy (~1955) Skin cancer History of hysterectomy for benign disease (~1993) Family History Father Prostate cancer Diabetes mellitus History of heart disease Hypertension Hyperlipidemia Congestive heart failure Mother Cancer Stroke Brother Atrial fibrillation Skin cancer Hyperlipidemia Brother Atrial fibrillation Hyperlipidemia Sister Skin cancer Grandmother Colon cancer Grandfather History of heart attack Grandmother Tuberculosis of spine Social History household members: spouse Smoking Status: Former smoker alcohol intake: current Smoking Status: Former smoker alcohol intake frequency: a few times a month Substance Use Type: does not use Exam Narrative Exam Narrative: GENERAL: Alert and oriented x three, elderly female in no acute distress. HEENT: Head normocephalic, atraumatic, EOMI, pupils reactive, face symmetric, moist mucous membranes NECK: Supple, full range of motion CARDIOVASCULAR: Regular rate and rhythm without murmurs, rubs or gallops. No JVD. No tachycardia. No edema bilateral lower extremities. RESPIRATORY: Breath sounds equal bilaterally, no wheezes rales or rhonchi. No tachypnea or accessory muscle use. Speaks in full sentences. ABDOMEN: Soft, nontender. Normoactive bowel sounds all 4 quadrants. No guarding or rebound, rigidity, no mass : No CVA tenderness EXTREMITIES: Normal range of motion, no clubbing or edema. Neurovascularly intact NEUROLOGICAL: Cranial nerves II through XII grossly intact. Moving all extremities SKIN: Warm, dry, no petechiae, no rashes or lesions. Initial Vital Signs Initial Vital Signs: Vital Signs Temperature 98 F 08/27/23 18:13 Pulse Rate 88 08/27/23 18:13 Respiratory Rate 18 08/27/23 18:13 Blood Pressure 146/64 H 08/27/23 18:13 Pulse Oximetry 96 08/27/23 18:13 Oxygen Delivery Method Room Air 08/27/23 18:13 Course Orders Ordered: ED Orders 08/27/23 19:14 XR chest 1V Stat 08/27/23 19:34 Complete Blood Count AUTO DIFF Stat Comprehensive Metabolic Panel Stat Lipase Stat Magnesium Stat Troponin & CK Cardiac Panel Stat Discontinued Medications Metoprolol Succinate (Metoprolol Er 25 Mg Tablet) 12.5 mg PO NOW ONE Stop: 08/27/23 21:29 Last Admin: 08/27/23 21:35 Dose: 12.5 mg Documented By: NICHOL Vital Signs Vital signs: Vital Signs - 8 hr 08/27/23 20:43 08/27/23 20:44 08/27/23 20:44 Temperature Pulse Rate 69 69 Respiratory Rate Blood Pressure 158/73 H Pulse Oximetry 96 97 Oxygen Delivery Method Room Air Room Air 08/27/23 21:00 08/27/23 21:00 08/27/23 21:30 Temperature Pulse Rate 64 68 Respiratory Rate 20 21 Blood Pressure 133/63 Pulse Oximetry 96 Oxygen Delivery Method Room Air 08/27/23 21:30 08/27/23 21:35 08/27/23 21:37 Temperature 98.4 F Pulse Rate 68 Respiratory Rate Blood Pressure 148/63 H 148/63 H Pulse Oximetry Oxygen Delivery Method MDM - Arrhythmia/Palpitations Lab Data 08/27/23 19:34 08/27/23 19:34 Labs: Lab Results 08/27/23 Range/Units 19:34 WBC 8.6 (4.5-11.0) X10^3/uL RBC 4.84 (4.0-5.2) X10^6/uL Hgb 14.3 (12.0-16.0) g/dL Hct 41.6 (36-46) % MCV 86.0 (80-100) fL MCH 29.5 (26-34) PG MCHC 34.3 (30-36) % RDW 13.7 (11.6-14.8) % Plt Count 265 (150-400) X10^3/uL Neut % (Auto) 53.6 (50-75) % Lymph % (Auto) 33.3 (25-40) % [place] % (Auto) 6.8 (3-14) % Eos % (Auto) 5.7 H (2-4) % Baso % (Auto) 0.6 (0-2) % Neut # (Auto) 4600 (4396-3211) /uL Lymph # (Auto) 2900 (8802-3164) /uL [place] # (Auto) 600 (0-900) /uL Eos # (Auto) 500 H (0-450) /uL Baso # (Auto) 100 (0-100) /uL Sodium 137 (137-145) mmol/L Potassium 3.9 (3.4-5.1) mmol/L Chloride 100 (98-107) mmol/L Carbon Dioxide 29 (22-32) mmol/L BUN 19 H (7-17) mg/dL Creatinine 0.60 (0.52-1.04) mg/dL Estimated GFR > 60 (>60) mL/min BUN/Creatinine Ratio 31.7 H (6-22) Glucose 99 (80-110) mg/dL Calcium 9.4 (8.4-10.2) mg/dL Magnesium 2.0 (1.6-2.3) mg/dL Total Bilirubin 0.7 (0.2-1.3) mg/dL AST 34 (14-36) IU/L ALT 6 (<35) IU/L Alkaline Phosphatase 61 (38-126) U/L Total Creatine Kinase 36 (30-135) U/L Troponin I < 0.012 (0.01-0.034) ng/mL Total Protein 7.3 (6.3-8.2) g/dL Albumin 4.1 (3.5-5.0) g/dL Globulin 3.2 (1.7-4.1) g/dL Albumin/Globulin Ratio 1.3 (1.0-2.8) Lipase 124 (23-300) U/L Imaging Data Chest x-ray: Radiologist's Impresson: Close Chest X-Ray (Signed) Rod Tyler - 08/27/23 Vascular Ultrasound (Signed) Monae Doshi - 03/31/23 DEXA Result 02/18/22 Bone Densitometry (Signed) Sivakumar Champion - 02/18/22 Mammogram Screening (Signed) Eber Nicholson - 01/23/22 Launch?[place] [address] XRay Report Signed Patient: Tanya Gilliam MR#: [id number] : 1950 Acct:[id number] Age/Sex: 73 / F Date of Service: 08/27/23 Loc: ED Accession Number: [id number] Procedure: XR chest 1V Ordering Provider: Abel Garcia D.O. PROCEDURE: XR CHEST 1V INDICATIONS: Palpitations TECHNIQUE: One view of the chest was acquired. COMPARISON: None. FINDINGS: Surgical changes and devices: None. Lungs and pleura: Lungs are clear. No pleural effusions or pneumothorax. Mediastinum: Mediastinal contours appear normal. Heart size is normal. Bones and chest wall: No suspicious bony lesions. Overlying soft tissues appear unremarkable. IMPRESSION: Portable chest within normal limits for age. Dictated by: Rod Tyler M.D. on 08/27/2023 at 20:15 Approved by: Rod Tyler M.D. on 08/27/2023 at 20:16 ECG Data Attestation: I personally reviewed and interpreted this ECG as follows: Interpretation: Sinus rhythm rate 88 OH 188 QRS [address] QTC 457[address] No acute ST changes such as elevation appreciated. No priors for comparison. MDM Narrative Medical decision making narrative: 73-year-old female with known history of SVT states elevated heart rate on and off for the past hour, resolved after arrival here. Has not had persistent. Workup shows potassium at 3.9, BUN slightly elevated at 19 may have some component dehydration Mag is 2, negative troponin, other electrolytes, renal function LFTs are negative with no significant anemia. Normal white count and platelets. Chest x-ray shows no acute change. No persistent arrhythmias here in the department. We will give patient her home dose of metoprolol this evening so she does not miss it. Discussed with patient she prefers to orally hydrate over having a L of fluids. Recommended to follow up with her employment specialist/program manager. Give them a ring in the morning. Discussed with patient she can take 1 extra dose of metoprolol if she has prolonged symptoms or episodes for over an hour again. And discussed they may end up re increasing her metoprolol if she has persistent issues. Discharge Plan Departure Patient Disposition: Home Clinical Impression: Palpitations Activity Restrictions/Additional Instructions: You may have a little bit of component of dehydration attributing to your elevated heart rate today. Please call to set up follow up with her cardiology team. Please continue your home medication as prescribed. If you have another episode where her heart rate is elevated for more than a few minutes or on and off for over an hour you can take 1 extra dose of your metoprolol. If you prefer you can also reach out your employment specialist/program manager by phone. Please return for new or worsening symptoms, lightheadedness or passing out, new chest pain, shortness of breath, new swelling of her extremities, diaphoresis, nausea or vomiting or other new or concerning changes. Prescriptions: No Action sertraline 50 mg tablet 50 mg PO DAILY Qty: 90 0RF hydroxychloroquine 200 mg tablet 200 mg PO DAILY nifedipine 30 mg tablet extended release 30 mg PO DAILY lactobacillus combination no.8 [Adult Probiotic] 3 billion cell capsule 3,000 mmu cells PO DAILY gabapentin 300 mg capsule 300 mg PO BID mycophenolate sodium 360 mg tablet,delayed release (DR/EC) 360 mg PO BID omeprazole 20 mg capsule,delayed release(DR/EC) 20 mg PO BID [id number] Tablet 1 tab PO DAILY metoprolol succinate 25 mg tablet extended release 24 hr 12.5 mg PO DAILY Referrals: Eric Toscano MD [Non-Staff] - Sherif Pitts DO [Primary Care Provider] - Stand Alone Forms: Patient Portal/API
[2023-08-27] MEDS: METOPROLOL ER 25 MG TABLET 12.5 MG PO (21:35)
== END 2023-08-27 21:45 | disposition home or self-care (01) ==
PROVIDERS: Emergency Medicine; Emergency Provider Emergency Medicine; PCP Family Medicine
DX: R00.2 Palpitations (principal)
CPT/HCPCS: 36415; 71045; 80053; 82550; 83690; 83735; 84484; 85025; 93005; 93010; 99284

== ENCOUNTER 2024-12-10 13:55 | Emergency (ER) | payer MEDICARE, OTHER, SELFPAY ==
[2019-09-16 17:30] VITALS: BMI 26.1
[2024-12-10] VITALS (17 sets, daily range): BP systolic 96–120; BP diastolic 55–84; PULSE 65–153; RESP 10–38; TEMP 36.4; O2SAT 93–97; BMI 10.9
--- NOTE | 2024-12-10 14:02 | EKG_ITS ---
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
--- NOTE | 2024-12-10 14:06 | DI.RAD.S_ITS ---
PROCEDURE: XR CHEST 1V INDICATIONS: chest pain TECHNIQUE: One view of the chest was acquired. COMPARISON: , CR, XR CHEST 1V, 08/27/2023, 19:36. FINDINGS: Surgical changes and devices: None. Lungs and pleura: Lungs are clear. No pleural effusions or pneumothorax. Mediastinum: Mediastinal contours appear normal. Heart size is normal. Bones and chest wall: No suspicious bony lesions. Overlying soft tissues appear unremarkable. IMPRESSION: No acute cardiopulmonary abnormality is seen. Dictated by: Kody Rodgers M.D. on 12/10/2024 at 15:30 Approved by: Kody Rodgers M.D. on 12/10/2024 at 15:31
[2024-12-10 14:25] LABS: Add Manual Diff / Slide Review NO; Basophils Absolute Auto 0 /uL (0-100); Basophils Percent Auto 0.5 % (0-2); Eosinophils Absolute Auto 400 /uL (0-450); Eosinophils Percent Auto 4.5 % (2-4); Hematocrit 46.3 % (36-46); Hemoglobin 15.3 g/dL (12.0-16.0); Lymphocytes Absolute Auto 2700 /uL (1100-4500); Lymphocytes Percent Auto 30.9 % (25-40); Mean Corpuscular HGB Conc 33.1 % (30-36); Mean Corpuscular Hemoglobin 29.5 PG (26-34); Mean Corpuscular Volume 89.2 fL (80-100); Monocytes Absolute Auto 700 /uL (0-900); Monocytes Percent Auto 7.9 % (3-14); Neutrophils Absolute Auto 4900 /uL (1500-7000); Neutrophils Percent Auto 56.2 % (50-75); Platelet Count 214 X10^3/uL (150-400); Red Blood Cell Count 5.19 X10^6/uL (4.0-5.2); White Blood Cell Count 8.7 X10^3/uL (4.5-11.0)
--- NOTE | 2024-12-10 14:26 | ED.ARRPALP ---
HPI - Arrhythmia/Palpitations General Chief Complaint: Arrhythmia/Palpitations Stated Complaint: rapid heart rate Time Seen by Provider: 12/10/24 14:14 Source: patient Mode of arrival: Ambulatory History of Present Illness HPI narrative: Patient here with family complains of palpitations that started at 10:00 a.m. today. 4-1/2 hours ago. Patient states she has a history of V-tach. Seen by Dr. Toscano with [facility]. She is only on metoprolol twice a day. She had Holter monitoring in the past. Denies any chest pain or shortness of breath. No syncope no dizziness. Related Data Home Medications Medication Instructions Recorded Confirmed hydroxychloroquine 200 mg tablet 200 mg PO DAILY 09/11/18 04/29/24 lactobacillus combination no.8 3 3,000 mmu cells PO DAILY 09/11/18 04/29/24 billion cell capsule (Adult Probiotic) nifedipine 30 mg tablet,extended 30 mg PO DAILY 09/11/18 04/29/24 release [id number]-[id number] tablet 1 tab PO DAILY 06/27/22 04/29/24 gabapentin 300 mg capsule 300 mg PO BID 06/27/22 04/29/24 mycophenolate sodium 360 mg 360 mg PO BID 06/27/22 04/29/24 tablet,delayed release omeprazole 20 mg capsule,delayed 20 mg PO BID 06/27/22 04/29/24 release vitamin B12 1 mg-folic acid 0.8 mg tab PO 04/29/24 04/29/24 tablet Previous Rx's Medication Instructions Recorded metoprolol succinate 25 mg 25 mg PO DAILY #90 tabs 01/30/24 tablet,extended release 24 hr sertraline 50 mg tablet 50 mg PO DAILY #90 tabs 09/29/24 apixaban 5 mg tablet 5 mg PO BID #60 tabs 12/10/24 Allergies Allergy/AdvReac Type Severity Reaction Status Date / Time Penicillins Allergy Unknown Welts Verified 12/10/24 14:06 Sulfa (Sulfonamide Allergy Unknown Unknown Verified 12/10/24 14:06 Antibiotics) Review of Systems Review of Systems Narrative: GENERAL: Negative chills, fatigue, malaise, fever, sweats. HEENT: Negative sinus pain, ear pain, sore throat RESPIRATORY: Negative dyspnea, cough CARDIOVASCULAR: Negative chest pain, positive palpitations GASTROINTESTINAL: Negative nausea, vomiting, abdominal pain : Negative dysuria, frequency, hematuria MUSCULOSKELETAL: Negative muscle or bony pain SKIN: Negative rash, skin lesions NEUROLOGIC: Negative weakness, numbness ROS Unobtainable: All systems reviewed & are unremarkable except as noted in HPI and below Patient History Medical History (Updated 12/10/24 @ 16:48 by Paresh Lai MD) Lumbar radiculopathy, chronic Greater trochanteric bursitis of both hips Chronic diarrhea Anxiety about health Pure hypercholesterolemia Cataracts, bilateral (~2018) Prolapsed bladder GERD (gastroesophageal reflux disease) Colon polyps Depression Peripheral neuropathy Osteopenia (~2011) Mumps Chicken pox Raynauds syndrome Scleroderma (~2009) Surgical History Anesthesia History of cataract removal with insertion of prosthetic lens (~2018) Vaginal prolapse (~2018) History of tonsillectomy (~1955) Skin cancer History of hysterectomy for benign disease (~1993) Family History Father Prostate cancer Diabetes mellitus History of heart disease Hypertension Hyperlipidemia Congestive heart failure Mother Cancer Stroke Brother Atrial fibrillation Skin cancer Hyperlipidemia Brother Atrial fibrillation Hyperlipidemia Sister Skin cancer Grandmother Colon cancer Grandfather History of heart attack Grandmother Tuberculosis of spine Social History household members: spouse Smoking Status: Former smoker alcohol intake: current Smoking Status: Former smoker alcohol intake frequency: a few times a month Exam Narrative Exam Narrative: GENERAL: in no distress, not toxic not dyspneic HEAD: Normocephalic. EYES: Pupils equal round ENT: Mucous membranes moist. NECK: Trachea midline. CARDIOVASCULAR: Regular rate and rhythm, tachycardia present RESPIRATORY: Clear to auscultation. Breath sounds equal bilaterally. No wheezes, rales, or rhonchi. GASTROINTESTINAL: Abdomen soft, non-tender EXTREMITIES: No gross deformities. BACK: No flank tenderness. NEURO: AOx4. Clear speech SKIN: Warm and dry PSYCH: Not anxious, is cooperative Initial Vital Signs Initial Vital Signs: Vital Signs Temperature 97.6 F 12/10/24 13:57 Pulse Rate 153 H 12/10/24 13:57 Respiratory Rate 14 12/10/24 13:57 Blood Pressure 120/84 12/10/24 13:57 Pulse Oximetry 95 12/10/24 13:57 Oxygen Delivery Method Room Air 12/10/24 13:57 Course Orders Ordered: Discontinued Medications Apixaban (Apixaban 5 Mg Tablet) 5 mg PO NOW ONE Stop: 12/10/24 16:49 Last Admin: 12/10/24 16:56 Dose: 5 mg Documented By: XIN Aspirin (Aspirin 81 Mg Chew Tab) 324 mg PO NOW ONE Stop: 12/10/24 14:07 Last Admin: 12/10/24 14:28 Dose: 324 mg Documented By: XIN Diltiazem HCl 125 mg/ Sodium (Chloride) 125 mls @ 5 mls/hr IV TITRATE SARAH; Protocol Last Titration: 12/10/24 17:03 Dose: Infused Documented By: Titration: 12/10/24 15:40 Dose: 0 mg/hr, 0 mls/hr Documented By: Admin: 12/10/24 14:53 Dose: 5 mg/hr, 5 mls/hr Documented By: XIN Vital Signs Vital signs: Vital Signs - 8 hr 12/10/24 13:57 12/10/24 14:01 12/10/24 14:30 Temperature 97.6 F Pulse Rate 153 H 148 H Respiratory Rate 14 Blood Pressure 120/84 120/84 112/75 Pulse Oximetry 95 97 Oxygen Delivery Method Room Air 12/10/24 14:30 12/10/24 15:00 12/10/24 15:00 Temperature Pulse Rate 142 H 146 H Respiratory Rate 25 H 22 Blood Pressure 102/55 L Pulse Oximetry 94 93 Oxygen Delivery Method 12/10/24 15:30 12/10/24 15:30 12/10/24 15:36 Temperature Pulse Rate 140 H Respiratory Rate 10 L Blood Pressure 96/66 99/67 Pulse Oximetry 94 Oxygen Delivery Method 12/10/24 15:36 12/10/24 15:40 12/10/24 15:40 Temperature Pulse Rate 75 73 Respiratory Rate 25 H 22 Blood Pressure 108/70 Pulse Oximetry 94 95 Oxygen Delivery Method 12/10/24 15:46 12/10/24 15:46 12/10/24 15:50 Temperature Pulse Rate 71 70 Respiratory Rate 20 21 Blood Pressure 105/70 Pulse Oximetry 95 93 Oxygen Delivery Method 12/10/24 15:50 12/10/24 15:56 12/10/24 15:56 Temperature Pulse Rate 71 Respiratory Rate 14 Blood Pressure 115/58 L 114/81 Pulse Oximetry 94 Oxygen Delivery Method 12/10/24 16:00 12/10/24 16:00 12/10/24 16:05 Temperature Pulse Rate 70 68 Respiratory Rate 15 18 Blood Pressure 109/62 Pulse Oximetry 94 94 Oxygen Delivery Method 12/10/24 16:05 12/10/24 16:10 12/10/24 16:10 Temperature Pulse Rate 67 Respiratory Rate 13 Blood Pressure 109/61 108/62 Pulse Oximetry 94 Oxygen Delivery Method 12/10/24 16:15 12/10/24 16:15 12/10/24 16:20 Temperature Pulse Rate 66 65 Respiratory Rate 13 38 H Blood Pressure 112/66 Pulse Oximetry 95 95 Oxygen Delivery Method 12/10/24 16:20 12/10/24 16:25 12/10/24 16:25 Temperature Pulse Rate 65 Respiratory Rate 25 H Blood Pressure 114/68 111/66 Pulse Oximetry 96 Oxygen Delivery Method 12/10/24 16:30 Temperature Pulse Rate 68 Respiratory Rate 23 Blood Pressure 109/63 Pulse Oximetry 96 Oxygen Delivery Method MDM - Arrhythmia/Palpitations Lab Data 12/10/24 14:14 12/10/24 14:14 Labs: Lab Results 12/10/24 Range/Units 14:14 WBC 8.7 (4.5-11.0) X10^3/uL RBC 5.19 (4.0-5.2) X10^6/uL Hgb 15.3 (12.0-16.0) g/dL Hct 46.3 H (36-46) % MCV 89.2 (80-100) fL MCH 29.5 (26-34) PG MCHC 33.1 (30-36) % RDW 14.0 (11.6-14.8) % Plt Count 214 (150-400) X10^3/uL Neut % (Auto) 56.2 (50-75) % Lymph % (Auto) 30.9 (25-40) % [place] % (Auto) 7.9 (3-14) % Eos % (Auto) 4.5 H (2-4) % Baso % (Auto) 0.5 (0-2) % Neut # (Auto) 4900 (8470-0192) /uL Lymph # (Auto) 2700 (5884-5070) /uL [place] # (Auto) 700 (0-900) /uL Eos # (Auto) 400 (0-450) /uL Baso # (Auto) 0 (0-100) /uL PT 10.8 (9.4-12.5) SECONDS INR 1.0 (0.9-1.3) APTT 38 H (25.1-36.5) SECONDS Sodium 139 (137-145) mmol/L Potassium 3.9 (3.4-5.1) mmol/L Chloride 105 (98-107) mmol/L Carbon Dioxide 25 (22-32) mmol/L BUN 15 (7-17) mg/dL Creatinine 0.85 (0.52-1.04) mg/dL Estimated GFR > 60 (>60) mL/min BUN/Creatinine Ratio 17.6 (6-22) Glucose 108 (80-110) mg/dL Calcium 9.2 (8.4-10.2) mg/dL Magnesium 1.7 (1.6-2.3) mg/dL Total Bilirubin 0.9 (0.2-1.3) mg/dL AST 36 (14-36) IU/L ALT 9 (<35) IU/L Alkaline Phosphatase 82 (38-126) U/L Total Creatine Kinase 67 (30-135) U/L Troponin I 0.019 (0.01-0.034) ng/mL NT-Pro-B Natriuret Pep 466 H (<125) pg/mL Total Protein 7.6 (6.3-8.2) g/dL Albumin 4.5 (3.5-5.0) g/dL Globulin 3.1 (1.7-4.1) g/dL Albumin/Globulin Ratio 1.5 (1.0-2.8) Lipase 105 (23-300) U/L TSH 3.86 (0.47-4.68) uIU/mL Imaging Data Chest x-ray: Radiologist's Impresson: [address] [address] XRay Report Signed Patient: Tanya Gilliam MR#: [id number] : 1950 Acct:[id number] Age/Sex: 74 / F Date of Service: 12/10/24 Loc: ED Accession Number: [id number] Procedure: XR chest 1V Ordering Provider: Paresh Lai MD PROCEDURE: XR CHEST 1V INDICATIONS: chest pain TECHNIQUE: One view of the chest was acquired. COMPARISON: [facility], CR, XR CHEST 1V, 08/27/2023, 19:36. FINDINGS: Surgical changes and devices: None. Lungs and pleura: Lungs are clear. No pleural effusions or pneumothorax. Mediastinum: Mediastinal contours appear normal. Heart size is normal. Bones and chest wall: No suspicious bony lesions. Overlying soft tissues appear unremarkable. IMPRESSION: No acute cardiopulmonary abnormality is seen. Dictated by: Kody Rodgers M.D. on 12/10/2024 at 15:30 Approved by: Kody Rodgers M.D. on 12/10/2024 at 15:31 [facility] Narrative Medical decision making narrative: Patient here with family complains of palpitations that started at 10:00 a.m. today. 4-1/2 hours ago. Patient states she has a history of V-tach. Seen by Dr. Toscano with [facility]. She is only on metoprolol twice a day. She had Holter monitoring in the past. Denies any chest pain or shortness of breath. No syncope no dizziness. After history and exam, [facility] Medical records reviewed: Differential considered: Includes but not limited to Lab Test results independently reviewed as above. Pertinent findings: WBC 8.7 hemoglobin 15.3 INR 1.0 Independently reviewed EKG atrial flutter 2-1 block rate 147 Imaging studies independently reviewed: Chest x-ray no acute finding Consultations: 2:20 p.m.. Spoke with [facility]iology, Dr. Zuniga, he recommends starting Cardizem. He has reviewed EKG. Likely atrial flutter 2-1 block. He recommends starting Cardizem drip or metoprolol. No cardioversion at this time. Treatments: Cardizem drip Eliquis Re-evaluations: 2:38 p.m.. Updated patient and family my discussion with cardiology services start Cardizem drip for atrial flutter. 4:46 p.m.. Patient remains in sinus rhythm. No distress. I reviewed with her my discussion with Cardiology. She has converted to sinus rhythm. We will start Eliquis. She will continue her metoprolol. She will call her 3d modeler next week for follow up. She does understand risk and benefits Eliquis. Her is on Eliquis as well. He has atrial fibrillation. at bedside. He agrees and understands need for Eliquis. The risks and benefits reviewed with him as well. 3:51 p.m.. Patient has converted to sinus rhythm. EKG now normal sinus rhythm rate 73. Discussion: Appropriate for discharge home exam is reassuring. Return precautions reviewed with patient, she desires discharge home. She has cardiology services to follow up with at [facility]. Eliquis has been started tonight. Diagnosis: Atrial flutter Critical Care Time Critical Care Time Attestation: Critical Care Time 35 minutes: Critical care time is separate from other billable procedures. This critical care time includes consultation with family and other consulting doctors, review of records, and interpretation of data from labs, EKGs, imaging, etc. Discharge Plan Departure Patient Disposition: Home Clinical Impression: Heart palpitations Instructions: DI for Atrial Flutter Activity Restrictions/Additional Instructions: Your exam and laboratory studies are reassuring. Cardiology services recommend starting you on Eliquis for possible development of atrial flutter. Continue your metoprolol. See your 3d modeler next week for re-evaluation. Return if worse if any questions or concerns. Prescriptions: New apixaban 5 mg tablet 5 mg PO BID Qty: 60 0RF No Action metoprolol succinate 25 mg tablet extended release 24 hr 25 mg PO DAILY Qty: 90 0RF sertraline 50 mg tablet 50 mg PO DAILY Qty: 90 0RF hydroxychloroquine 200 mg tablet 200 mg PO DAILY nifedipine 30 mg tablet extended release 30 mg PO DAILY lactobacillus combination no.8 [Adult Probiotic] 3 billion cell capsule 3,000 mmu cells PO DAILY gabapentin 300 mg capsule 300 mg PO BID mycophenolate sodium 360 mg tablet,delayed release (DR/EC) 360 mg PO BID omeprazole 20 mg capsule,delayed release(DR/EC) 20 mg PO BID [id number] Tablet 1 tab PO DAILY vitamin [id number] acid 1-0.8 mg tablet PO Referrals: Sherif Pitts DO [Primary Care Provider] - Stand Alone Forms: Patient Portal/API/Survey
[2024-12-10 14:28] LABS: Prothrombin Time 10.8 SECONDS (9.4-12.5)
[2024-12-10] MEDS: ASPIRIN 81 MG CHEW TAB 324 MG PO (14:28)
[2024-12-10 14:31] LABS: PTT Partial Thromboplastin Tim 38 SECONDS (25.1-36.5)
[2024-12-10 14:34] LABS: Alanine Aminotransferase 9 IU/L (<35); Albumin 4.5 g/dL (3.5-5.0); Albumin Globulin Ratio 1.5 (1.0-2.8); Alkaline Phosphatase 82 U/L (38-126); Aspartate Aminotransferase 36 IU/L (14-36); BUN Creatinine Ratio 17.6 (6-22); Bilirubin Total 0.9 mg/dL (0.2-1.3); Blood Urea Nitrogen 15 mg/dL (7-17); Calcium 9.2 mg/dL (8.4-10.2); Carbon Dioxide 25 mmol/L (22-32); Chloride 105 mmol/L (98-107); Creatine Kinase 67 U/L (30-135); Estimated Glomerular Filt Rate > 60 mL/min (>60); Globulin 3.1 g/dL (1.7-4.1); Glucose 108 mg/dL (80-110); HEMOLYSIS 16 (0-50); Lipase 105 U/L (23-300); Magnesium 1.7 mg/dL (1.6-2.3); Potassium 3.9 mmol/L (3.4-5.1); Sodium 139 mmol/L (137-145); Total Protein 7.6 g/dL (6.3-8.2)
[2024-12-10 14:45] LABS: NT-proBNP (BNP-Adult 18+) 466 pg/mL (<125); Troponin I 0.019 ng/mL (0.01-0.034)
[2024-12-10] MEDS: dilTIAZem 125 MG in SODIUM CHLORIDE 0.9% 100 ML IV (14:53)
[2024-12-10 15:18] LABS: Thyroid Stimulating Hormone 3.86 uIU/mL (0.47-4.68)
--- NOTE | 2024-12-10 15:41 | PC.NURSE ---
pt responded to Diltiazem, HR noted to be 75, EKG ordered, Diltiazem stopped and Provider aware. Pt converted to Normal Sinus rhythm.
--- NOTE | 2024-12-10 15:43 | EKG_ITS ---
[id number] [place] [address] Test Date: 2024-12-10 Pat Name: Tanya Gilliam Department: Room: Gender: Female Postal Clerk: PERCY : 1950 Requested By: Order Number: [id number] Reading MD: Sal Moreno Measurements Intervals [place] Rate: 73 P: 24 [place]: 182 QRS: 2 QRSD: 78 T: 1 QT: 396 QTc: 436 Interpretive Statements Normal sinus rhythm Minimal voltage criteria for LVH, may be normal variant ( R in aVL ) Nonspecific ST abnormality Electronically Signed On 12-12-2024 18:56:23 PST by Sal Moreno
[2024-12-10] MEDS: APIXABAN 5 MG TABLET PO (16:56)
== END 2024-12-10 17:00 | disposition home or self-care (01) ==
PROVIDERS: Emergency Provider Emergency Medicine; PCP Family Medicine
DX: R00.2 Palpitations (principal); R07.9 Chest pain, unspecified; I44.0 Atrioventricular block, first degree; R00.0 Tachycardia, unspecified
CPT/HCPCS: 36415; 71045; 80053; 82550; 83690; 83735; 83880; 84443; 84484; 85025; 85610; 85730; 93005; 96365; 99284; 99291

== ENCOUNTER → 2025-01-19 13:10 | Outpatient (CLI) | payer MEDICARE, OTHER, SELFPAY ==
[2019-09-16 17:30] VITALS: BMI 26.1
--- NOTE | 2025-01-19 13:12 | DI.RAD.S_ITS ---
PROCEDURE: XR DEXA AXIAL SKELETON INDICATIONS: osteopenia, screen osteoporosis COMPARISON: [facility], [place], XR DEXA AXIAL SKELETON, 02/18/2022, 12:59. FINDINGS: Lumbar Spine: Bone mineral density 0.942 g/cm2, T score -1.0, normal, change from previous-2.9% Statistical significance of bone mineral density change cannot be determined due to dissimilar scan types or analysis method.. Left Femoral Neck: Bone mineral density 0.742 g/cm2, T score -1.0, normal. Left Hip: Bone mineral density 0.776 g/cm2, T score -1.4, osteopenia, change from previous-2.0% Statistical significance of bone mineral density change cannot be determined due to dissimilar scan types or analysis method.. Fracture Risk Calculation (when applicable): 10-year fracture risk of a major osteoporotic fracture 15 percent and of a hip fracture 6.3 percent. (T score greater or equal to -1.0 to: NORMAL) (T score from -1.1 to -2.4: OSTEOPENIA) (T score less than or equal to -2.5: OSTEOPOROSIS) IMPRESSION: Osteopenia elevates the patient's 10 year fracture risk as described. No statistically significant change in bone mineral density compared to prior. Follow-up guidelines as follows: Osteoporosis: Consider a repeat DEXA and Vertebral Fracture Assessment (VFA) exam in 2 years or sooner if medically necessary, to reassess this patient's status. Osteopenia: Consider a repeat DEXA in 2-3 years to reassess this patient's status, or if there is a new clinical indication. Normal: Consider a repeat DEXA in 5 years or sooner, or if there is a new clinical indication. All treatment decisions require clinical judgment and consideration of individual patient factors, including patient preferences, comorbidities, previous drug use, risk factors not captured in the FRAX model (e.g., frailty, falls, vitamin D deficiency, increased bone turnover, interval significant decline in bone density ) and possible under- or over-estimation of fracture risk by FRAX. In addition, the NOF Guide recommends that FDA-approved medical therapies be considered in postmenopausal women and men age >= 50 years with a: * Hip or vertebral (clinical or morphometric) fracture * T-score of <=-2.5 at the spine or hip * Ten-year fracture probability by FRAX of >= 3% for hip fracture or >=20% for major osteoporotic fracture. Dictated by: Cristina Anderson M.D. on 01/19/2025 at 17:33 Approved by: Cristina Anderson M.D. on 01/19/2025 at 17:34
--- NOTE | 2025-01-19 13:12 | DI.MG.S_ITS ---
MM screening mammo BI: 01/19/2025. BI-RADS: 1 CLINICAL: 74-year old female for bilateral screening mammogram. Tyrer-Cuzick lifetime risk of 10.5%. No personal or first-degree family history of breast cancer. PRIOR EXAMS 01/23/2022, 09/21/2018, 08/11/2017. MAMMOGRAPHY TECHNIQUE: 2D and 3D (tomosynthesis) digital mammographic views obtained, with additional images as needed for full coverage. Current study was also evaluated with a Computer Aided Detection (CAD) system. DENSITY C. The breasts are heterogeneously dense, which may obscure small masses. MAMMOGRAPHY FINDINGS Bilateral: No suspicious mass, asymmetry, microcalcification, or other abnormality seen. IMPRESSION: * No evidence of malignancy. RECOMMENDATIONS Bilateral * Annual screening mammography. OVERALL ASSESSMENT CATEGORY BI-RADS-1: Negative. The [employer] recommends annual screening mammography beginning at age 40 for women with average risk of breast cancer. ELECTRONICALLY SIGNED: Julianna Ochoa M.D. on 01/19/2025 at 06:11:41 PM PT Interpreting Station ID: [id number]
== END ==
PROVIDERS: PCP Family Medicine; Referring Provider Family Medicine; Visit Provider Family Medicine
DX: Z12.31 Encounter for screening mammogram for malignant neoplasm of breast; R92.333 Mammographic heterogeneous density, bilateral breasts; M85.89 Other specified disorders of bone density and structure, multiple sites
CPT/HCPCS: 77063; 77067; 77080